=== PATIENT | female | born 1935 | race Caucasian/White ===

== ENCOUNTER 2016-12-20 09:19 | Inpatient (IN) | payer MEDICARE, BC ==
[2016-12-20] VITALS (7 sets, daily range): BP systolic 136–175; BP diastolic 63–72; PULSE 69–72; RESP 19–20; TEMP 98.3; Ht 167.6 cm; Wt 78.4 kg
[~2016-12-20] VITALS: Ht 167.6 cm; Wt 78.4 kg
[2016-12-20] MEDS ORDERED: CEFEPIME 2GM/50 ML (PMX) 50 ML IVPB STA (09:27)
[2016-12-20] MEDS ORDERED: ALBUTEROL 0.083% (NEB) 2.5 MG/3 ML AMP HHN STA (09:27)
[2016-12-20] MEDS ORDERED: VANCOMYCIN 1 GM (PMX) 250 ML IVPB ONE (09:30)
[2016-12-20] MEDS ORDERED: IPRATROPIUM (NEB) 0.5 MG/2.5 ML AMP HHN ONE (09:30)
[2016-12-20 10:04] LABS: AADO2 Arterial 260.2 mmHg (7.0-24.0); Allen Test ACCEPTAB; Arterial Base Excess 3.6 mmol/L (-3.0-3); Arterial COHb 0.3 % (0.0-3.0); Arterial Fraction of Oxyhgb 97.7 % (93.0-99.0); Arterial HCO3 29.1 mmol/L (22.0-26.0); Arterial MetHb 0.3 % (0.0-1.5); Arterial Total Hemglobin 13.6 g/dl (12.0-18.0); MODE COOL AEROSOL
[2016-12-20 10:10] LABS: BASOPHIL # 0.1 10^3/ul (0.0-0.1); BASOPHILS % 0.5 % (0.0-2.0); EOSINOPHILS # 1.1 10^3/ul (0.0-0.5); EOSINOPHILS % 8.6 % (0.0-7.0); HEMATOCRIT 36.8 % (37.0-47.0); HEMOGLOBIN 12.2 g/dl (12.0-16.0); LYMPHOCYTES # 1.1 10^3/ul (0.8-2.9); MEAN CORPUSCULAR HEMOGLOBIN 30.4 pg (29.0-33.0); MEAN CORPUSCULAR HGB CONC 33.2 g/dl (32.0-37.0); MEAN CORPUSCULAR VOLUME 91.8 fl (82.0-101.0); MEAN PLATELET VOLUME 10.7 fl (7.4-10.4); MONOCYTE # 0.9 10^3/ul (0.3-0.9); MONOCYTES % 6.9 % (0.0-11.0); NEUTROPHIL # 9.4 10^3/ul (1.6-7.5); NEUTROPHILS % 74.6 % (39.0-77.0); PLATELET COUNT 264 10^3/UL (140-415); RED BLOOD COUNT 4.01 10^6/ul (4.20-5.40); RED CELL DISTRIBUTION WIDTH 14.2 % (11.5-14.5); WHITE BLOOD COUNT 12.6 10^3/ul (4.8-10.8)
--- NOTE | 2016-12-20 10:21 | RADRPT ---
PROCEDURE: XR Chest. CLINICAL INDICATION: Sepsis TECHNIQUE: A single AP view of the chest was obtained. COMPARISON: No prior examination is available for comparison. FINDINGS: A tracheostomy tube is in place. There is a left subclavian dual chamber pacemaker. The lungs are hyperinflated with coarsening of the interstitial markings. There are left lower lobe interstitial opacities. No focal airspace opacification, pleural effusion or pneumothorax is seen. The cardiomediastinal silhouette is within normal limits for size. Calcifications are seen within t he aortic arch. The osseous structures are unremarkable. IMPRESSION: 1. Chronic-appearing interstitial changes. 2. Left lower lobe interstitial opacities may reflect atelectasis, superimposed interstitial edema or pneumonia. 3. Aortic atherosclerosis. 4. Tubes and lines, as described above. RPTAT: HH .Pura Cárdenas MD, MD Date Time Electronically viewed and signed by .Pura Cárdenas MD, on 12/20/2016 10:21 .G/
[2016-12-20 10:26] LABS: INR 0.93; PROTIME 12.5 Sec (12.2-14.2)
[2016-12-20 10:27] LABS: PARTIAL THROMBOPLASTIN TIME 30.3 Sec (25.0-35.0)
[2016-12-20 10:30] LABS: ALANINE AMINOTRANSFERASE 22 IU/L (13-69); ALBUMIN 3.9 g/dl (3.3-4.9); ALBUMIN/GLOBULIN RATIO 1.02; ALKALINE PHOSPHATASE 90 IU/L (42-121); ANION GAP 12 (8-16); ASPARTATE AMINO TRANSFERASE 19 IU/L (15-46); BILIRUBIN,INDIRECT 0.3 mg/dl (0-1.1); BILIRUBIN,TOTAL 0.3 mg/dl (0.2-1.3); BLOOD UREA NITROGEN 17 mg/dl (7-20); CALCIUM 9.2 mg/dl (8.4-10.2); CARBON DIOXIDE 34 mmol/L (21-31); CHLORIDE 96 mmol/L (97-110); CREATININE 0.56 mg/dl (0.44-1.00); GLUCOSE 117 mg/dl (70-220); POTASSIUM 4.5 mmol/L (3.5-5.1); SODIUM 137 mmol/L (135-144); TOTAL PROTEIN 7.7 g/dl (6.1-8.1)
[2016-12-20 10:41] LABS: TROPONIN-I < 0.012 ng/ml (0.00-0.12)
[2016-12-20] MEDS ORDERED: ACETAMINOPHEN 325 MG TAB PO PRN ×2 (11:00)
[2016-12-20] MEDS ORDERED: NACL 0.9% 3 ML SYG IV SCH (11:00)
[2016-12-20] MEDS ORDERED: morphine 2 MG INJ IV PRN (11:00)
[2016-12-20] MEDS ORDERED: DOCUSATE SODIUM 100 MG CAP PO PRN (11:00)
[2016-12-20] MEDS ORDERED: VANCOMYCIN IV PER PHARMACY XX SCH (11:00)
[2016-12-20] MEDS ORDERED: ONDANSETRON 4 MG INJ IV PRN ×2 (11:00)
[2016-12-20] MEDS ORDERED: ALBUTEROL/IPRATROPIUM (NEB) 3 ML AMP HHN PRN (11:30)
[2016-12-20] MEDS ORDERED: ACET-2047 PEG (12:43)
[2016-12-20] MEDS ORDERED: BISA10SU75 PR (12:45)
[2016-12-20] MEDS ORDERED: AMLO5TAB4 PEG (12:45)
[2016-12-20] MEDS ORDERED: CARB1TAB2 PEG (12:46)
[2016-12-20] MEDS ORDERED: CLON-379 PEG (12:46)
[2016-12-20] MEDS ORDERED: DOCU-159 PEG (12:47)
[2016-12-20] MEDS ORDERED: IPRA3AMP INHALATION (12:47)
[2016-12-20] MEDS ORDERED: LEVE500S8 PEG (12:48)
[2016-12-20] MEDS ORDERED: HYDR-3670 GTB (12:48)
[2016-12-20] MEDS ORDERED: LACT10SO5 PO (12:49)
[2016-12-20] MEDS ORDERED: KETO120S2 TOP (12:49)
[2016-12-20] MEDS ORDERED: LEVO25TA53 PO (12:50)
[2016-12-20] MEDS ORDERED: POLY17PO6 PO (12:50)
[2016-12-20] MEDS ORDERED: LACT20SO2 PO (12:50)
[2016-12-20] MEDS ORDERED: MODA100T10 PEG (12:51)
[2016-12-20] MEDS ORDERED: MULTI PO (12:55)
[2016-12-20] MEDS ORDERED: POLY15DR30 BOTH EYES (12:56)
[2016-12-20] MEDS ORDERED: PROT946L PEG (12:57)
[2016-12-20] MEDS ORDERED: SENN-53 PO (12:57)
--- NOTE | 2016-12-20 12:57 | ERD ---
ER Documentation Chief Complaint Chief Complaint patient FAITH from SNF with complaint of SOB and Low Saturation HPI Patient is an 81-year-old female with stroke and seizures as well as dementia who presents with low oxygen. Please note the history and physical exam is limited secondary to the patient's dementia at baseline. The patient was brought in by ambulance. She came from [facility]. She had a low oxygen level and congestion and wheezing. She needed to have an increased oxygen amount to raise her O2 sat. Her temperature was 99.1. I cannot obtain history otherwise. Upon review of old medical records this is the patient's first visit to the emergency department. Her primary doctor is Dr. Fowler. ROS All systems reviewed and are negative except as per history of present illness. Medications Home Meds Reported Medications Modafinil* (Provigil*) 100 Mg Tablet, 25 MG PEG DAILY, TAB 12/20/16 Polyethylene Glycol* (Miralax*) 17 Gm Powd.pack, 17 GM PO DAILY, #30 PACKET 12/20/16 Levothyroxine Sodium* (Levothyroxine Sodium*) 25 Mcg Tablet, 25 MCG PO BEFORE BREAKFAST, #30 TAB 12/20/16 Lactulose* (Lactulose*) 20 Gm/30 Ml Solution, 20 GM PO DAILY Y for CONSTIPATION , ML 12/20/16 Ketoconazole* (Ketoconazole*) 2% - 120 Ml Shampoo, 1 APPLIC TOP FRIDAY & FRIDAY, EA WASH HAIR/SCALP AND RINSE OFF 12/20/16 Levetiracetam* (Keppra*) 500 Mg/5 Ml Solution, 1000 MG PEG BID, BOTTLE 12/20/16 Hydralazine Hcl* (Hydralazine Hcl*) 10 Mg Tablet, 10 MG GTB Q8 Y for ELEVATED BLOOD PRESSURE, #120 TAB 12/20/16 Ipratropium-Albuterol (Ipratropium-Albuterol) 0.5-3 Mg/3 Ml Ampul.neb, 3 ML INHALATION Q2HWA Y for WHEEZING AND SOB, #30 VIAL 12/20/16 Docusate Sodium* (Docusate Sodium*) 100 Mg Capsule, 100 MG PEG Q12, #30 CAP 12/20/16 Clonidine Hcl* (Clonidine Hcl*) 0.1 Mg Tab, 0.1 MG PEG Q12 Y for ELEVATED BLOOD PRESSURE, TAB 12/20/16 Carbidopa/Levodopa (Sinemet 25-100 mg Tablet) 1 Each Tablet, 1 EACH PEG TID, TAB 12/20/16 Bisacodyl* (Bisacodyl*) 10 Mg Supp, 10 MG MN Q24H Y for CONSTIPATION, SUPP 12/20/16 Amlodipine Besylate* (Norvasc*) 5 Mg Tablet, 5 MG PEG Q12, TAB HOLD IF SBP<110 OR HR<60 12/20/16 Acetaminophen* (Acetaminophen*) 650 Mg Tablet, 650 MG PEG Q4 Y for PAIN AND OR ELEVATED TEMP, #30 TAB 12/20/16 Discontinued Reported Medications Lactulose* (Lactulose*) 10 Gm/15 Ml Solution, 10 GM PO DAILY, ML 12/20/16 Allergies Allergies: Coded Allergies: No Known Allergy (Unverified , 12/20/16) PMhx/Soc Positive for stroke, seizures, and dementia FmHx Unable to obtain Physical Exam Vitals Vital Signs Date Time Temp Pulse Resp B/P Pulse Ox O2 Delivery O2 Flow Rate FiO2 12/20/16 10:13 92 20 96 Aerosol 10.0 40 T Tube 12/20/16 10:13 96 10.0 40 12/20/16 10:00 Venti Mask 10.0 12/20/16 10:00 98.3 99 20 142/57 99 Mechanical Ventilator 10.0 12/20/16 09:38 Nasal Cannula 12/20/16 09:35 89 17 96 Aerosol 10.0 60 T Tube 12/20/16 09:35 94 10.0 60 12/20/16 09:20 98.0 100 20 145/86 98 Physical Exam Const: Chronically ill Head: Atraumatic Eyes: Normal Conjunctiva ENT: Normal External Ears, Nose and Mouth. Neck: Full range of motion..~ No meningismus. Resp: Decreased breath sounds bilaterally Cardio: Regular rate and rhythm, no murmurs Abd: Soft, non tender, non distended. Normal bowel sounds Skin: No petechiae or rashes Back: No midline or flank tenderness Ext: No cyanosis, or edema Neur: Awake encephalopathic Result Diagram: 12/20/1645 12/20/1645 Results 24 hrs Laboratory Tests Test 12/20/16 09:43 12/20/16 09:45 Blood Gas Specimen Source Blood arterial Arterial Blood Date Drawn 12/20/2016 9:58:51 AM Arterial Blood pH (Temp corrected) 7.407 Arterial Blood pCO2 (Temp correct) 47.3mmhg Arterial Blood pO2 (Temp corrected) 115.6mmHG Arterial Blood HCO3 29.1mmol/L Arterial Blood Base Excess 3.6mmol/L Arterial Blood Oxygen Saturation 98.3mmHG Dc Test ACCEPTAB Arterial Blood Gas Puncture Site Right Radial Arterial Blood Carboxyhemoglobin 0.3% Arterial Blood Methemoglobin 0.3% Blood Gas A-a O2 Differential 260.2mmHg Oxyhemoglobin Percent 97.7% Total Hemoglobin 13.6g/dl Blood Gas Temperature 37.0C Blood Gas Modality COOL AEROSOL FiO2 60.0% Blood Gas Notified Whom [place] Blood Gas Notified Time 12/20/2016 10:03:25 AM Bedside Glucose 119mg/dL White Blood Count 12.610^3/ul Red Blood Count 4.0110^6/ul Hemoglobin 12.2g/dl Hematocrit 36.8% Mean Corpuscular Volume 91.8fl Mean Corpuscular Hemoglobin 30.4pg Mean Corpuscular Hemoglobin Concent 33.2g/dl Red Cell Distribution Width 14.2% Platelet Count 61712^3/UL Mean Platelet Volume 10.7fl Neutrophils % 74.6% Lymphocytes % 9.0% Monocytes % 6.9% Eosinophils % 8.6% Basophils % 0.5% Nucleated Red Blood Cells % 0.0/100WBC Neutrophils # 9.410^3/ul Lymphocytes # 1.110^3/ul Monocytes # 0.910^3/ul Eosinophils # 1.110^3/ul Basophils # 0.110^3/ul Nucleated Red Blood Cells # 0.010^3/ul Prothrombin Time 12.5Sec Prothrombin Time Ratio 1.0 INR International Normalized Ratio 0.93 Activated Partial Thromboplast Time 30.3Sec Sodium Level 137mmol/L Potassium Level 4.5mmol/L Chloride Level 96mmol/L Carbon Dioxide Level 34mmol/L Anion Gap 12 Blood Urea Nitrogen 17mg/dl Creatinine 0.56mg/dl Glucose Level 117mg/dl Lactic Acid Level 1.3mmol/L Calcium Level 9.2mg/dl Total Bilirubin 0.3mg/dl Direct Bilirubin 0.00mg/dl Indirect Bilirubin 0.3mg/dl Aspartate Amino Transf (AST/SGOT) 19IU/L Alanine Aminotransferase (ALT/SGPT) 22IU/L Alkaline Phosphatase 90IU/L Troponin I < 0.012ng/ml Total Protein 7.7g/dl Albumin 3.9g/dl Globulin 3.80g/dl Albumin/Globulin Ratio 1.02 Current Medications Medications (Trade) Dose Ordered Sig/Elda Route PRN Reason Start Time Stop Time Status Last Admin Dose Admin Cefepime HCl 50 ml @ 100 mls/hr ONCE STAT IVPB 12/20/16 09:27 12/20/16 09:56 DC 12/20/16 09:58 Vancomycin HCl (Vancocin) 250 ml @ 125 mls/hr ONCE ONCE IVPB 12/20/16 09:30 12/20/16 11:29 DC Albuterol (Proventil 0.083% (Neb)) 5 mg ONCE STAT HHN 12/20/16 09:27 12/20/16 09:29 DC 12/20/16 10:13 Ipratropium Benjamin (Atrovent 0.02% (Neb)) 0.5 mg ONCE ONCE HHN 12/20/16 09:30 12/20/16 09:31 DC 12/20/16 10:13 Procedures/MDM EKG read by me: Rate/Rhythm: Regular rate and rhythm at a normal rate Intervals: Normal Impression: No evidence of ischemia or arrhythmia Chest x-ray shows left lower lobe pneumonia per radiology. Patient is an 81-year-old female presents with low oxygen. She was found to have pneumonia. She was given broad-spectrum antibiotics and fluids. At this point I doubt sepsis as she does not have 2 SIRS criteria. The patient will be admitted to the care of Dr. Fowler her primary doctor to a medical surgical bed. She will need continued antibiotics. She was given albuterol and Atrovent in the emergency department. I doubt pneumothorax or pulmonary embolism. Departure Diagnosis: Primary Impression: Hypoxia Additional Impression: Pneumonia Pneumonia type: due to unspecified organism Laterality: left Lung location : lower lobe of lung Qualified Code: J18.1 - Pneumonia of left lower lobe due to infectious organism Condition: VIGNESH Lopez MD Dec 20, 2016 12:57
[2016-12-20] MEDS ORDERED: KEN1O TOP (12:58)
[2016-12-20] MEDS ORDERED: VANCOMYCIN 750 MG in DEXTROSE 5% 150 ML IVPB SCH (13:30)
[2016-12-20] MEDS ORDERED: ARTIFICIAL TEARS 15 ML OPH BOTH EYES PRN (13:30)
[2016-12-20] MEDS ORDERED: BISACODYL 10 MG SUPP PR PRN (13:30)
[2016-12-20] MEDS ORDERED: LACTULOSE 30ML CUP PO PRN (13:30)
[2016-12-20] MEDS ORDERED: KETOCONAZOLE 2% SHAMPOO 120 ML BTL TOP SCH (14:30)
[2016-12-20] MEDS: ALBUTEROL/IPRATROPIUM (NEB) 3 ML AMP HHN SCH ×3 (14:36→20:27)
[2016-12-20] MEDS: AMLODIPINE 5 MG TAB PEG SCH ×2 (15:10→22:38)
[2016-12-20] MEDS: ACYCLOVIR 800 MG TAB PO SCH ×3 (15:11→22:35)
--- NOTE | 2016-12-20 16:39 | HP ---
DATE OF ADMISSION: 12/20/2016 REASON FOR ADMISSION: Pneumonia, hypoxia, acute on chronic respiratory failure. HISTORY OF PRESENT ILLNESS: The patient is an unfortunate 81-year-old female with history of coronary artery disease, status post PCI, pacemaker, COPD, trach and PEG, off the ventilator, hi story of a CVA and intracranial hemorrhage status post shunt placement. She had initially a basilic vein thrombosis. The patient unfortunately has chronic encephalopathy and she does not really resp ond to verbal stimuli. The patient was in her usual state of health up until today when I received a call that the patient is hypoxic and has increased secretions. Upon discussion with nursing staff , we decided to send the patient to the hospital for further evaluation. In the ER, the patient was evaluated extensively. Chest x-ray was done which showed chronic appearing interstitial changes wi th left lower lobe interstitial opacity, may reflect atelectasis, superimposed interstitial edema or pneumonia. There is aortic atherosclerosis, and tubes and lines are as described. The patient was started on cefepime and vancomycin, breathing treatments were given as well, and the patient was pa ncultured and transferred to the telemetry unit. Upon evaluation, the patient does keep her eyes op en, in no distress, has a trach collar, breathing adequately now on 10 liters, 80% FIO2, 99%. The p glendy's is at bedside, he is aware of plan of care and patient's condition. The patient ca nnot provide history. PAST MEDICAL HISTORY: Includes history of cerebrovascular accident, intracranial hemorrhage, [place] artery disease, COPD, pacemaker placement, dysphagia, G-tube feeding, history of UTI. SOCIAL HISTORY: Positive tobacco in the past. Alcohol and IV drug abuse unknown. ALLERGIES: NO KNOWN DRUG ALLERGIES. FAMILY HISTORY: Noncontributory. PAST SURGICAL HISTORY: Trach placement, PEG placement and pacemaker placement. MEDICATIONS: The patient's correction medications include the followin. Ipratropium. 2. 3. Amlodipine 5 mg q.12. 4. Clonidine 0.1 q.12 p.r.n. 5. Hydralazine 10 mg q.8 p.r.n. 6. Tylenol p.r.n. 7. Sinemet 25/100 t.i.d. 8. Keppra 1000 b.i.d. 9. Provigil 25 mg daily. 10. Lactulose p.r.n. daily. 11. Protein supplement as directed. 12. Propylene alcohol as directed. 13. Bisacodyl as directed. 14. Colace 100 mg every 12 hours. 15. MiraLax 17 grams daily. 16. Senna 1 tab daily. 17. Synthroid 25 mcg daily. 18. Ketoconazole shampoo as directed. 19. Kenalog ointment as directed. 20. Multivitamin as directed. PHYSICAL EXAMINATION: VITAL SIGNS: Temperature 98.5, pulse 102, respirations 19, blood pressure 165/71, saturation 99% on trach aerosol. GENERAL: The patient is in no acute distress. The patient with temporal wasting, sunken eyes, pale . She has a trach collar off the ventilator. CARDIOVASCULAR: S1, S2, regular rate. LUNGS: Clear. Pacemaker in the left upper chest. ABDOMEN: Soft. G-tube in place. The right side of the abdomen has a vesicular rash suggestive of shingles. LABORATORY DATA: White count 12.6, hemoglobin 12.2, hematocrit 37, platelet count 264, neutrophils 75%, lymphocytes 9%, monocytes 7%, eosinophils 9%. Chemistry: Sodium is 137, potassium 4.5, chlori de 96, bicarbonate 34, BUN is 17, creatinine 0.53, glucose of 117. LFTs are normal. Albumin 3.9. Troponin less than 0.019. Lactic acid 1.3. INR 0.93. ABG shows a pH of 7.4, pCO2 of 47, pO2 115, bicarbonate 29, saturation is 98% on 60% FIO2. Chest x-ray as above. EKG: Normal sinus rhythm, right bundle branch block at 95 beats per minute. ASSESSMENT AND PLAN: This is an unfortunate 81-year-old female with history of brain inju ry/hemorrhagic cerebrovascular accident, dysphagia, gastrostomy tube feedings, chronic respiratory f ailure, who presents with increased oral secretions and left-sided pneumonia. 1. Respiratory: The patient with pneumonia. The patient will be started on cefepime and vancomyci n, breathing treatments around the clock will be provided. Will obtain respiratory culture from the trach. Case discussed with RT. Consult pulmonology for further recommendations. Titrate the O2 t o keep saturation greater than 90%. 2. Cardiovascular: Stable. SCDs for DVT prophylaxis. She is off blood thinners because of histor y of hemorrhagic CVA, and probably can start it as this CVA was more than 6 months ago. Troponin is negative. No evidence of fluid overload state. 3. Gastrointestinal. The patient will be placed on gastrointestinal prophylaxis with Protonix. 4. Shingles. The patient will be started on acyclovir and will put her on Neurontin as well. 5. Eyelid discharge. Eyelid care is recommended. 6. Dysphagia. Continue G-tube feeding. 7. Hypothyroidism, on low-dose Synthroid. Follow up TSH level. 8. Constipation. Continue stool softeners. 9. Hypertension. Continue/resume the patient's medications, keep her normotensive. Case discussed with the at bedside. 10. Air mattress bed was ordered to prevent any wounds. The patient unfortunately is bedridden, un able to move on her own. 11. 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 12. On seizure prophylaxis with Keppra. May consider lowering the dose. 13. We will follow. Dictated By: JONE EPSTEIN/FLOYD Conf#: [id number] DID#: [id number]
--- NOTE | 2016-12-20 18:18 | CONS ---
DATE OF ADMISSION: 12/20/2016 DATE OF CONSULTATION: REASON FOR CONSULTATION: Shortness of breath. Thank you, Dr. Fowler, for this consultation. HISTORY OF PRESENT ILLNESS: This is an 81-year-old patient with a history of chronic respiratory fa ilure, tracheostomy, transferred from halfway facility for increasing shortness of breath, o rthopnea, PND, low oxygen saturation. The patient is unable to give me further details. On admissi on, found to have left-sided infiltrate with mild leukocytosis. PAST MEDICAL HISTORY: 1. Vent-dependent respiratory failure. 2. Dementia. 3. Dysphagia. 4. Hypertension. 5. Hyperlipidemia. MEDICATIONS: Per chart. ALLERGIES: NONE. SOCIAL HISTORY: Nonsmoker, no alcohol, no history of drug use. FAMILY HISTORY: Noncontributory. SYSTEMS REVIEW: A 12-point review of systems unable to perform. PHYSICAL EXAMINATION: GENERAL: Elderly-appearing lady, appears comfortable at rest, no acute distress. VITAL SIGNS: Currently afebrile. Pulse is 67, blood pressure 165/70, O2 saturation 96% on cool aer osol. NECK: Trach site clean and intact. CARDIAC: S1, S2, no added sounds or murmurs. CHEST: Diminished air entry bilaterally. ABDOMEN: Soft, nontender. No guarding or rebound. EXTREMITIES: No cyanosis, clubbing, edema. NEUROLOGIC: Generalized weakness. LABORATORY DATA: ABG: pH 7.4, pCO2 of 47, pO2 115. White count 12.6, hemoglobin 12.2, platelets o f 264. BUN 17, creatinine 0.56. INR 0.93. DIAGNOSTIC DATA: Chest x-ray: Chronic interstitial changes, possible left-sided infiltrate and/or effusion. IMPRESSION AND PLAN: 1. Acute on chronic hypoxemic respiratory failure. 2. Likely healthcare-associated pneumonia. 3. Chronic respiratory failure with tracheostomy. 4. History of dementia. 5. History of dysphagia. PLAN: 1. Continue cool aerosol. 2. Trach care. 3. Bronchodilators. 4. Antibiotics pending cultures. 5. DVT and GI prophylaxis. Dictated By: ABIOLA SANTANA MD SV/NTS Conf#: [id number] DID#: [id number] CC: JONE FOWLER MD;*EndCC*
[2016-12-20] MEDS ORDERED: DOCUSATE SODIUM 100 MG CAP PO SCH (21:00)
[2016-12-20] MEDS: GABAPENTIN 100 MG CAP GTB SCH (22:35)
[2016-12-20] MEDS: LEVETIRACETAM (100 MG/ML) 5ML CUP PEG SCH (22:36)
[2016-12-20] MEDS: CARBIDOPA/LEVODOPA (25/100) TAB PEG SCH (22:36)
[2016-12-20] MEDS: TRIAMCINOLONE ACET 0.1% 15 GM OINT TOP SCH (22:36)
[2016-12-21] VITALS (13 sets, daily range): BP systolic 116–139; BP diastolic 54–77; PULSE 70–78; RESP 19–20
[2016-12-21] MEDS: ALBUTEROL/IPRATROPIUM (NEB) 3 ML AMP HHN SCH ×6 (01:19→20:49)
[2016-12-21] MEDS: PANTOPRAZOLE (EC) 40 MG TAB PO SCH (05:51)
[2016-12-21 06:19] LABS: BASOPHIL # 0.1 10^3/ul (0.0-0.1); BASOPHILS % 0.6 % (0.0-2.0); EOSINOPHILS # 1.1 10^3/ul (0.0-0.5); EOSINOPHILS % 10.7 % (0.0-7.0); HEMATOCRIT 36.4 % (37.0-47.0); HEMOGLOBIN 11.8 g/dl (12.0-16.0); LYMPHOCYTES # 1.4 10^3/ul (0.8-2.9); LYMPHOCYTES % 13.9 % (15.0-51.0); MEAN CORPUSCULAR HEMOGLOBIN 30.1 pg (29.0-33.0); MEAN CORPUSCULAR HGB CONC 32.4 g/dl (32.0-37.0); MEAN CORPUSCULAR VOLUME 92.9 fl (82.0-101.0); MEAN PLATELET VOLUME 10.9 fl (7.4-10.4); MONOCYTE # 0.7 10^3/ul (0.3-0.9); MONOCYTES % 7.5 % (0.0-11.0); NEUTROPHIL # 6.6 10^3/ul (1.6-7.5); PLATELET COUNT 258 10^3/UL (140-415); RED BLOOD COUNT 3.92 10^6/ul (4.20-5.40); RED CELL DISTRIBUTION WIDTH 14.3 % (11.5-14.5); WHITE BLOOD COUNT 9.9 10^3/ul (4.8-10.8)
[2016-12-21 06:43] LABS: ALBUMIN 3.7 g/dl (3.3-4.9); ALBUMIN/GLOBULIN RATIO 1.02; BILIRUBIN,INDIRECT 0.3 mg/dl (0-1.1); BILIRUBIN,TOTAL 0.3 mg/dl (0.2-1.3); CALCIUM 9.1 mg/dl (8.4-10.2); CREATININE 0.55 mg/dl (0.44-1.00); POTASSIUM 4.6 mmol/L (3.5-5.1); TOTAL PROTEIN 7.3 g/dl (6.1-8.1)
[2016-12-21] MEDS: LEVOTHYROXINE 25 MCG TAB PO SCH (06:43)
[2016-12-21 07:36] LABS: THYROID STIMULATING HORMONE 2.15 MIU/L (0.465-4.680)
[2016-12-21] MEDS ORDERED: MODAFINIL 100 MG TAB PO SCH (09:00)
[2016-12-21] MEDS: CEFEPIME 1GM/50 ML (PMX) 50 ML IVPB SCH (09:15)
[2016-12-21] MEDS: GABAPENTIN 100 MG CAP GTB SCH ×3 (09:37→21:25)
[2016-12-21] MEDS: LEVETIRACETAM (100 MG/ML) 5ML CUP PEG SCH ×2 (09:38→21:24)
[2016-12-21] MEDS: SENNA TAB PO SCH (09:38)
[2016-12-21] MEDS: POLYETHYLENE GLYCOL 17 GM PACKET PO SCH (09:38)
[2016-12-21] MEDS: CARBIDOPA/LEVODOPA (25/100) TAB PEG SCH ×3 (09:38→21:25)
[2016-12-21] MEDS: MULTIVITAMINS THERAPEUTIC TAB PO SCH (09:39)
[2016-12-21] MEDS: ACYCLOVIR 800 MG TAB PO SCH ×5 (09:39→21:25)
[2016-12-21] MEDS: DOCUSATE SODIUM 10 MG/ML (10ML CUP) PO SCH ×2 (10:00→21:24)
[2016-12-21] MEDS: AMLODIPINE 5 MG TAB PEG SCH ×2 (10:03→21:27)
[2016-12-21] MEDS ORDERED: DOCUSATE SODIUM 10 MG/ML (10ML CUP) PO PRN (10:30)
--- NOTE | 2016-12-21 13:11 | CONS ---
Date/Time of Note Date/Time of Note DATE: 12/21/16 TIME: 13:00 Consult Date/Type/Reason Admit Date/Time Dec 20, 2016 at 10:49 Initial Consult Date Type of Consultation: Pulmonary Subjective Patient stable this morning. No new events. Objective Vital Signs Date Time Temp Pulse Resp B/P Pulse Ox O2 Delivery O2 Flow Rate FiO2 12/21/16 12:25 77 12/21/16 11:35 97.5 19 116/56 100 12/21/16 09:46 Aerosol 10.0 68 Intake and Output 12/20/16 12/20/16 12/21/16 15:00 23:00 07:00 Intake Total 115 ml 1095 ml Balance 115 ml 1095 ml Exam PHYSICAL EXAMINATION: GENERAL: Elderly-appearing lady, appears comfortable at rest, no acute distress. VITAL SIGNS: As above. NECK: Trach site clean and intact. CARDIAC: S1, S2, no added sounds or murmurs. CHEST: Diminished air entry bilaterally. ABDOMEN: Soft, nontender. No guarding or rebound. EXTREMITIES: No cyanosis, clubbing, edema. NEUROLOGIC: Generalized weakness. Results/Medications Result Diagram: 12/21/16 0552 12/21/16 0552 Results 24 hrs Laboratory Tests Test 12/20/16 14:30 12/21/16 05:52 Lactic Acid Level 1.6 White Blood Count 9.9 # Red Blood Count 3.92 L Hemoglobin 11.8 L Hematocrit 36.4 L Mean Corpuscular Volume 92.9 Mean Corpuscular Hemoglobin 30.1 Mean Corpuscular Hemoglobin Concent 32.4 Red Cell Distribution Width 14.3 Platelet Count 258 Mean Platelet Volume 10.9 H Neutrophils % 67.0 Lymphocytes % 13.9 L Monocytes % 7.5 Eosinophils % 10.7 H Basophils % 0.6 Nucleated Red Blood Cells % 0.0 Neutrophils # 6.6 Lymphocytes # 1.4 Monocytes # 0.7 Eosinophils # 1.1 H Basophils # 0.1 Nucleated Red Blood Cells # 0.0 Sodium Level 138 Potassium Level 4.6 Chloride Level 97 Carbon Dioxide Level 31 Anion Gap 15 Blood Urea Nitrogen 15 Creatinine 0.55 Glucose Level 130 Calcium Level 9.1 Total Bilirubin 0.3 Direct Bilirubin 0.00 Indirect Bilirubin 0.3 Aspartate Amino Transf (AST/SGOT) 19 Alanine Aminotransferase (ALT/SGPT) 23 Alkaline Phosphatase 85 Total Protein 7.3 Albumin 3.7 Globulin 3.60 H Albumin/Globulin Ratio 1.02 Thyroid Stimulating Hormone (TSH) 2.150 Medications Current Medications Ondansetron HCl (Zofran Inj) 4 mg Q6H PRN IV NAUSEA AND/OR VOMITING; Start 11/26 at 11:00 Acetaminophen (Tylenol Tab) 650 mg Q6H PRN PO PAIN LEVEL 1-3 OR FEVER; Start 12/20/16 at 11:00 Morphine Sulfate (morphine) 2 mg Q4H PRN IV PAIN LEVEL 7-10; Start 12/20/16 at 11:00 Pantoprazole 40 mg 40 mg DAILY@06 PO Last administered on 12/21/16 05:51; Admin Dose 40 MG; Start 12/21/16 at 06:00 Cefepime HCl (Maxipime 1gm/50 ml (Pmx)) 50 ml @ 100 mls/hr Q24H IVPB Last administered on 12/21/16 09:15; Admin Dose 100 MLS/HR; Start 12/21/16 at 09: 00 Amlodipine Besylate (Norvasc) 5 mg Q12 PEG Last administered on 12/21/16 10: 03; Admin Dose 5 MG; Start 12/20/16 at 13:30 Bisacodyl (Dulcolax Supp) 10 mg Q24H PRN RI CONSTIPATION; Start 12/20/16 at 13 :30 Carbidopa/Levodopa (Sinemet (25/ 100)) 1 tab TID PEG Last administered on 12/21 12:47; Admin Dose 1 TAB; Start 12/20/16 at 21:00 Hydralazine HCl (Apresoline) 10 mg Q8H PRN GTB SBP > 160; Start 12/20/16 at 13 :30 Ketoconazole (Nizoral Shampoo) 1 applic WeFr@09 TOP Last administered on 15:11; Admin Dose 1 APPLIC; Start 12/20/16 at 14:30 Lactulose (Enulose) 20 gm DAILY PRN PO CONSTIPATION; Start 12/20/16 at 13:30 Levetiracetam (Keppra Liquid) 1,000 mg BID PEG Last administered on 12/21/16 09:38; Admin Dose 1,000 MG; Start 12/20/16 at 21:00 Multivitamins Therapeutic (Theragran) 1 tab DAILY PO Last administered on 12/21 09:39; Admin Dose 1 TAB; Start 12/21/16 at 09:00 Polyethylene Glycol (Miralax) 17 gm DAILY PO Last administered on 12/21/16 09 :38; Admin Dose 17 GM; Start 12/21/16 at 09:00 Eye Lubricant (Artificial Tears Oph) 1 drop Q2HWA PRN BOTH EYES DRY EYES; Start 12/20/16 at 13:30 Senna (Senokot) 1 tab DAILY PO Last administered on 12/21/16 09:38; Admin Dose 1 TAB; Start 12/21/16 at 09:00 Triamcinolone Acetonide (Kenalog 0.1% Oint) 1 applic QPM TOP Last administered on 12/20/16 22:36; Admin Dose 1 APPLIC; Start 12/20/16 at 21:00 Gabapentin 100 mg 100 mg TID GTB Last administered on 12/21/16 12:46; Admin Dose 100 MG; Start 12/20/16 at 21:00 Vancomycin HCl/ Sodium Chloride (Vancocin/NS) 250 ml @ 83.333 mls/ hr Q24H IVPB ; Start 12/21/16 at 13:00 Docusate Sodium (Colace Liquid Cup) 100 mg Q12 PO Last administered on 10:00; Admin Dose 100 MG; Start 12/21/16 at 10:00 Docusate Sodium (Colace Liquid Cup) 100 mg Q12H PRN PO CONSTIPATION Last administered on 12/21/16 12:51; Admin Dose 100 MG; Start 12/21/16 at 10:30 Assessment/Plan Chief Complaint/Hosp Course IMPRESSION: 1. Acute on chronic hypoxemic respiratory failure. 2. Likely healthcare-associated pneumonia. 3. Chronic respiratory failure with tracheostomy. 4. History of dementia. 5. History of dysphagia. PLAN: 1. Continue cool aerosol. 2. Trach care. 3. Bronchodilators. 4. Antibiotics pending cultures. 5. DVT and GI prophylaxis. consider dc to SNF Problems: ABIOLA SANTANA MD, [facility] Dec 21, 2016 13:11
[2016-12-21] MEDS: VANCOMYCIN 1.25 GM in SOD CHLORIDE 0.9% 250 ML IVPB SCH (13:58)
[2016-12-21] MEDS: TRIAMCINOLONE ACET 0.1% 15 GM OINT TOP SCH (21:27)
--- NOTE | 2016-12-21 21:31 | PN ---
DATE: 12/21/2016 SUBJECTIVE: The patient is seen, appears comfortable, endotracheal was now only 40% FIO2. I apprec iate pulmonary consultation and recommendations. PHYSICAL EXAMINATION: VITAL SIGNS: Temperature 97.6, pulse 68, respirations 20, blood pressure 129/62, saturation 96% on 40%. The patient is afebrile. GENERAL: The patient is in no acute distress. She has significant dandruff on the head. She has b een provided with shampoo. The patient has slightly yellow discharge, not involving the inner eye. CARDIOVASCULAR: Positive S1, S2. LUNGS: Actually clear bilaterally. The patient has a trach also. ABDOMEN: Soft. G-tube in place. She has shingles in the right abdomen. EXTREMITIES: There is no clubbing, cyanosis, or edema. LABORATORY DATA: White count is now normal at 9.9, hemoglobin 11.8, hematocrit 36, platelet count o f 258, neutrophils 67%, lymphocytes 14%. Chemistry: Sodium 138, potassium 4.6, chloride 97, bicarb 15, creatinine 0.55, glucose of 130. LFTs are all normal. The patient's blood cultures show gram- positive cocci in clusters, 2 out of 2 bottles, suggestive of bacteremia and respiratory shows mixed gram-negative organisms. MEDICATIONS: Include: 1. Vancomycin IV dose per pharmacy. 2. Colace 100 q.12. 3. Cefepime 1 gram q.24 hours. 4. Multivitamin 1 tab daily. 5. MiraLax 17 g daily. 6. Senna 1 tab daily. 7. Synthroid 25 mL daily. 8. Protonix 40 mg daily. 9. Sinemet 25/100 t.i.d. 10. Keppra 1000 b.i.d. 11. Kenalog ointment q.p.m. 12. Neurontin 100 t.i.d. for shingles. 13. Zovirax 800 5 times a day. 14. Ketoconazole every Friday and Friday. 15. Norvasc 5 mg q. 12. 16. Hydralazine p.r.n. 17. Lactulose p.r.n. 18. Artificial tears as directed. 19. DuoNeb q.4. 20. DuoNeb q.2 p.r.n. 21. Zofran p.r.n. 22. Tylenol p.r.n. 23. Morphine p.r.n. 24. Vancomycin IV dose per pharmacy. ASSESSMENT AND PLAN: This is an 81-year-old female with history of brain injury, hemorrha gic cerebrovascular accident, dysphagia, G-tube feeding, chronic respiratory failure, on trach and a lso presented with increased secretions and was found to have a left-sided pneumonia. 1. Respiratory. The patient with pneumonia. Continue cefepime and vancomycin. Follow up sputum c ulture results. Continue breathing treatment, O2 support. I appreciate pulmonary consult. O2 requ irement has decreased. 2. Cardiovascular. On sequential compression devices for deep venous thrombosis prophylaxis, now o ff blood thinner secondary to hemorrhagic cerebrovascular accident. Troponin has been negative. Cu rrently, no evidence of fluid overload state. 3. Gastrointestinal. Continue gastrointestinal prophylaxis with Protonix. 4. Shingles. Continue acyclovir and Neurontin. 5. Eyelid discharge. Eyelid care is recommended. 6. Dysphagia, tolerating G-tube feeding. 7. Hypothyroidism. Continue Synthroid. TSH is 2.15. 8. Constipation. Continue stool softener. 9. Hypertension. Vitals are all stable. 10. Parkinsonism, on Sinemet. 11. Seizure disorder, on Keppra. 12. The patient is currently on air mattress bed, frequent turning as needed. 13. I spoke with the . I told him that I am coming. He said he is busy with a client. Ankit klein inform him of the patient's ongoing progress. 14. Plan for repeat chest x-ray in 1 to 2 days. 15. Infectious disease. The patient with positive blood cultures. We will see if this is real. Zackery bacon will repeat blood cultures in the a.m. Continue above antibiotics. His white count is normal. Zackery bacon will follow. Dictated By: JONE EPSTEIN/FLOYD Conf#: [id number] DID#: [id number]
[2016-12-22] VITALS (12 sets, daily range): BP systolic 129–180; BP diastolic 63–78; PULSE 75–86; RESP 16–68
[2016-12-22] MEDS: ALBUTEROL/IPRATROPIUM (NEB) 3 ML AMP HHN SCH ×6 (01:11→20:52)
[2016-12-22] MEDS: LEVOTHYROXINE 25 MCG TAB PO SCH (06:06)
[2016-12-22] MEDS: PANTOPRAZOLE (EC) 40 MG TAB PO SCH (06:06)
[2016-12-22 07:11] LABS: BASOPHIL # 0.1 10^3/ul (0.0-0.1); BASOPHILS % 0.5 % (0.0-2.0); EOSINOPHILS # 1.1 10^3/ul (0.0-0.5); EOSINOPHILS % 11.5 % (0.0-7.0); HEMATOCRIT 34.1 % (37.0-47.0); HEMOGLOBIN 11.3 g/dl (12.0-16.0); LYMPHOCYTES % 10.7 % (15.0-51.0); MEAN CORPUSCULAR HEMOGLOBIN 30.7 pg (29.0-33.0); MEAN CORPUSCULAR HGB CONC 33.1 g/dl (32.0-37.0); MEAN CORPUSCULAR VOLUME 92.7 fl (82.0-101.0); MEAN PLATELET VOLUME 11.1 fl (7.4-10.4); MONOCYTE # 0.6 10^3/ul (0.3-0.9); MONOCYTES % 6.6 % (0.0-11.0); NEUTROPHIL # 6.7 10^3/ul (1.6-7.5); NEUTROPHILS % 70.4 % (39.0-77.0); PLATELET COUNT 233 10^3/UL (140-415); RED BLOOD COUNT 3.68 10^6/ul (4.20-5.40); RED CELL DISTRIBUTION WIDTH 14.3 % (11.5-14.5); WHITE BLOOD COUNT 9.5 10^3/ul (4.8-10.8)
[2016-12-22 07:53] LABS: CALCIUM 9.2 mg/dl (8.4-10.2); CREATININE 0.57 mg/dl (0.44-1.00); POTASSIUM 4.6 mmol/L (3.5-5.1)
[2016-12-22 07:57] LABS: MAGNESIUM 1.9 mg/dl (1.7-2.5); PHOSPHORUS 3.6 mg/dl (2.5-4.9)
[2016-12-22] MEDS: LEVETIRACETAM (100 MG/ML) 5ML CUP PEG SCH ×2 (09:41→21:21)
[2016-12-22] MEDS: DOCUSATE SODIUM 10 MG/ML (10ML CUP) PO SCH ×2 (09:42→21:21)
[2016-12-22] MEDS: SENNA TAB PO SCH (09:42)
[2016-12-22] MEDS: POLYETHYLENE GLYCOL 17 GM PACKET PO SCH (09:42)
[2016-12-22] MEDS: MULTIVITAMINS THERAPEUTIC TAB PO SCH (09:42)
[2016-12-22] MEDS: GABAPENTIN 100 MG CAP GTB SCH ×3 (09:42→21:22)
[2016-12-22] MEDS: CARBIDOPA/LEVODOPA (25/100) TAB PEG SCH ×3 (09:42→21:21)
[2016-12-22] MEDS: CEFEPIME 1GM/50 ML (PMX) 50 ML IVPB SCH (09:42)
[2016-12-22] MEDS: ACYCLOVIR 800 MG TAB PO SCH ×5 (09:44→21:21)
[2016-12-22] MEDS: AMLODIPINE 5 MG TAB PEG SCH ×2 (12:45→21:24)
[2016-12-22] MEDS: VANCOMYCIN 1.25 GM in SOD CHLORIDE 0.9% 250 ML IVPB SCH (12:57)
--- NOTE | 2016-12-22 13:01 | CONS ---
Date/Time of Note Date/Time of Note DATE: 12/22/16 TIME: 12:58 Consult Date/Type/Reason Admit Date/Time Dec 20, 2016 at 10:49 Type of Consultation: Pulmonary Subjective Remains stable this morning. No events overnight. No leukocytosis and afebrile. Objective Vital Signs Date Time Temp Pulse Resp B/P Pulse Ox O2 Delivery O2 Flow Rate FiO2 12/22/16 12:43 98.0 73 18 145/78 100 12/22/16 09:05 Aerosol 10.0 60 T Tube Intake and Output 12/21/16 12/21/16 12/22/16 15:00 23:00 07:00 Intake Total 950 ml Balance 950 ml Exam PHYSICAL EXAMINATION: GENERAL: Elderly-appearing lady, appears comfortable at rest, no acute distress. VITAL SIGNS: As above. NECK: Trach site clean and intact. CARDIAC: S1, S2, no added sounds or murmurs. CHEST: Diminished air entry bilaterally. ABDOMEN: Soft, nontender. No guarding or rebound. EXTREMITIES: No cyanosis, clubbing, edema. NEUROLOGIC: Generalized weakness. Results/Medications Result Diagram: 12/22/16 0641 12/22/16 0641 Results 24 hrs Laboratory Tests Test 12/22/16 06:41 White Blood Count 9.5 Red Blood Count 3.68 L Hemoglobin 11.3 L Hematocrit 34.1 L Mean Corpuscular Volume 92.7 Mean Corpuscular Hemoglobin 30.7 Mean Corpuscular Hemoglobin Concent 33.1 Red Cell Distribution Width 14.3 Platelet Count 233 Mean Platelet Volume 11.1 H Neutrophils % 70.4 Lymphocytes % 10.7 L Monocytes % 6.6 Eosinophils % 11.5 H Basophils % 0.5 Nucleated Red Blood Cells % 0.0 Neutrophils # 6.7 Lymphocytes # 1.0 Monocytes # 0.6 Eosinophils # 1.1 H Basophils # 0.1 Nucleated Red Blood Cells # 0.0 Sodium Level 136 Potassium Level 4.6 Chloride Level 97 Carbon Dioxide Level 35 H Anion Gap 9 # Blood Urea Nitrogen 15 Creatinine 0.57 Glucose Level 126 Calcium Level 9.2 Phosphorus Level 3.6 Magnesium Level 1.9 Medications Current Medications Ondansetron HCl (Zofran Inj) 4 mg Q6H PRN IV NAUSEA AND/OR VOMITING; Start 11/26 at 11:00 Acetaminophen (Tylenol Tab) 650 mg Q6H PRN PO PAIN LEVEL 1-3 OR FEVER; Start 12/20/16 at 11:00 Morphine Sulfate (morphine) 2 mg Q4H PRN IV PAIN LEVEL 7-10; Start 12/20/16 at 11:00 Pantoprazole 40 mg 40 mg DAILY@06 PO Last administered on 12/22/16 06:06; Admin Dose 40 MG; Start 12/21/16 at 06:00 Cefepime HCl (Maxipime 1gm/50 ml (Pmx)) 50 ml @ 100 mls/hr Q24H IVPB Last administered on 12/22/16 09:42; Admin Dose 100 MLS/HR; Start 12/21/16 at 09: 00 Amlodipine Besylate (Norvasc) 5 mg Q12 PEG Last administered on 12/22/16 12: 45; Admin Dose 5 MG; Start 12/20/16 at 13:30 Bisacodyl (Dulcolax Supp) 10 mg Q24H PRN [place] CONSTIPATION; Start 12/20/16 at 13 :30 Carbidopa/Levodopa (Sinemet (25/ 100)) 1 tab TID PEG Last administered on 12/22 12:44; Admin Dose 1 TAB; Start 12/20/16 at 21:00 Hydralazine HCl (Apresoline) 10 mg Q8H PRN GTB SBP > 160; Start 12/20/16 at 13 :30 Ketoconazole (Nizoral Shampoo) 1 applic WeFr@09 TOP Last administered on 15:11; Admin Dose 1 APPLIC; Start 12/20/16 at 14:30 Lactulose (Enulose) 20 gm DAILY PRN PO CONSTIPATION; Start 12/20/16 at 13:30 Levetiracetam (Keppra Liquid) 1,000 mg BID PEG Last administered on 12/22/16 09:41; Admin Dose 1,000 MG; Start 12/20/16 at 21:00 Multivitamins Therapeutic (Theragran) 1 tab DAILY PO Last administered on 12/22 09:42; Admin Dose 1 TAB; Start 12/21/16 at 09:00 Polyethylene Glycol (Miralax) 17 gm DAILY PO Last administered on 12/22/16 09 :42; Admin Dose 17 GM; Start 12/21/16 at 09:00 Eye Lubricant (Artificial Tears Oph) 1 drop Q2HWA PRN BOTH EYES DRY EYES; Start 12/20/16 at 13:30 Senna (Senokot) 1 tab DAILY PO Last administered on 12/22/16 09:42; Admin Dose 1 TAB; Start 12/21/16 at 09:00 Triamcinolone Acetonide (Kenalog 0.1% Oint) 1 applic QPM TOP Last administered on 12/21/16 21:27; Admin Dose 1 APPLIC; Start 12/20/16 at 21:00 Gabapentin 100 mg 100 mg TID GTB Last administered on 12/22/16 12:44; Admin Dose 100 MG; Start 12/20/16 at 21:00 Vancomycin HCl/ Sodium Chloride (Vancocin/NS) 250 ml @ 83.333 mls/ hr Q24H IVPB Last administered on 12/22/16 12:57; Admin Dose 83.333 MLS/HR; Start at 13:00 Docusate Sodium (Colace Liquid Cup) 100 mg Q12 PO Last administered on 09:42; Admin Dose 100 MG; Start 12/21/16 at 10:00 Docusate Sodium (Colace Liquid Cup) 100 mg Q12H PRN PO CONSTIPATION Last administered on 12/21/16 12:51; Admin Dose 100 MG; Start 12/21/16 at 10:30 Miscellaneous Information (*Rx Drug Level Order Reminder*) VANCO TROUGH @ 1, 200 ON ... ONCE ONCE XX ; Start 12/23/16 at 12:00; Stop 12/23/16 at 12:01 Assessment/Plan Chief Complaint/Hosp Course IMPRESSION: 1. Acute on chronic hypoxemic respiratory failure. 2. Likely healthcare-associated pneumonia. 3. Chronic respiratory failure with tracheostomy. 4. History of dementia. 5. History of dysphagia. PLAN: 1. Continue cool aerosol. Pulmonary toilet as needed 2. Trach care. 3. Bronchodilators. 4. Antibiotics pending cultures. 5. DVT and GI prophylaxis. consider dc to SNF Problems: ABIOLA SANTANA MD, [facility] Dec 22, 2016 13:01
--- NOTE | 2016-12-22 18:59 | PN ---
DATE: 12/22/2016 SUBJECTIVE: Patient seen, in no acute distress overnight. PHYSICAL EXAMINATION: VITAL SIGNS: Temperature 98, pulse 86, respirations 20, blood pressure 145/78, saturation is 98%. There are no acute events overnight. Temperature 98%, pulse 86, respirations 20, blood pressure 145 /78, saturation 98% on 60% FIO2. GENERAL: The patient is in no acute distress. She has a trach collar. CARDIOVASCULAR: S1 and S2. LUNGS: Decreased bilaterally. ABDOMEN: Soft. She has shingles in the right abdomen. In the right upper extremity, there is some eczema noted. EXTREMITIES: Otherwise, no clubbing, cyanosis, or edema. LABORATORY DATA: White count is 9.5, hemoglobin 11.3, hematocrit 34, platelet count 232, neutrophil s 70%, lymphocytes 11%. Chemistry: Sodium 136, potassium 4.6, chloride 97, bicarbonate 25, BUN is 15, creatinine 0.57, glucose 126. Cultures: Sputum culture shows pseudomonas and gram-negative timoteo s, awaiting sensitivities. Her blood cultures also are positive, gram-positive cocci in clusters 1 of 2 bottles. CURRENT MEDICATIONS: Include: 1. Bactroban to the nares as the patient does have ____ of the nares as well 2. Vancomycin dose per pharmacy. 3. Colace 100 q.12. 4. Cefepime 1 gram q.24 hours. 5. Multivitamin 1 tab daily. 6. MiraLax 17 grams daily. 7. Senna 1 tab daily. 8. Synthroid 75 mcg daily. 9. Protonix 40 mg daily. 10. Sinemet 25/100 t.i.d. 11. Keppra 1000 b.i.d. 12. Kenalog ointment q.p.m. 13. Neurontin 100 t.i.d. 14. Zovirax 800 five times a day. 15. Nizoral shampoo every Friday and Friday. 16. Norvasc 5 mg q.12. 17. Dulcolax p.r.n. 18. Hydralazine p.r.n. 19. Lactulose p.r.n. 20. Artificial Tears as directed. 21. DuoNebs every 4 hours. 22. Zofran p.r.n. 23. Tylenol p.r.n. 24. Morphine. 25. Vancomycin IV dose per pharmacy. ASSESSMENT AND PLAN: This is an 81-year-old female with history of brain injury and hemor rhagic CVA, dysphagia, G-tube feeding, chronic respiratory failure on trach who presented with incre ased secretions and was found to have left-sided was found to have right-sided pneumonia. 1. Respiratory. The patient with positive sputum culture. Followup culture results. Continue cef epime and vancomycin for now and adjust antibiotics as needed. 2. Cardiovascular. Patient is on SCDs for DVT prophylaxis, off blood thinner secondary to previous hemorrhagic CVA. No evidence of fluid overload state. 3. Gastrointestinal. Continue Protonix for gastrointestinal prophylaxis. 4. Shingles. Continue acyclovir and Neurontin. 5. Continue eyelid care. 6. Provide triamcinolone for eczema. 7. Hypothyroidism. Continue Synthroid. TSH is 2.15. 8. Constipation. Stool softeners. 9. Parkinsonism, on Sinemet. 10. Seizure disorder, status post cerebrovascular accident. Continue Keppra. Have been in touch w ith the and I told him about the patient's condition. 11. I appreciate Dr. Medeiros's pulmonary recommendations. Continue aggressive pulmonary care and s uctioning. This patient has secretions. Continue bronchodilators. 12. Continue G-tube feeding. Continue air mattress bed and supportive care. Make sure the patient is comfortable. Dictated By: JONE EPSTEIN/FLOYD Conf#: [id number] DID#: [id number] CC: JONE FERNANDEZ MD;*EndCC*
[2016-12-22] MEDS ORDERED: NA PHOSPHATE/BIPHOS 133 ML ENEMA PR ONE (20:00)
[2016-12-22] MEDS ORDERED: KETOCONAZOLE 2% SHAMPOO 120 ML BTL TOP ONE (20:00)
[2016-12-22] MEDS: MUPIROCIN 2% 22 GM OINT TOP SCH (21:24)
[2016-12-22] MEDS: TRIAMCINOLONE ACET 0.1% 15 GM OINT TOP SCH (21:25)
[2016-12-23] VITALS (12 sets, daily range): BP systolic 104–146; BP diastolic 56–69; PULSE 73–85; RESP 18
[2016-12-23] MEDS: ALBUTEROL/IPRATROPIUM (NEB) 3 ML AMP HHN SCH ×6 (01:58→21:59)
[2016-12-23] MEDS: LEVOTHYROXINE 25 MCG TAB PO SCH (07:29)
[2016-12-23] MEDS: PANTOPRAZOLE (EC) 40 MG TAB PO SCH (07:29)
[2016-12-23 07:43] LABS: BASOPHIL # 0.1 10^3/ul (0.0-0.1); BASOPHILS % 0.7 % (0.0-2.0); EOSINOPHILS # 1.2 10^3/ul (0.0-0.5); EOSINOPHILS % 12.5 % (0.0-7.0); HEMATOCRIT 34.1 % (37.0-47.0); HEMOGLOBIN 10.7 g/dl (12.0-16.0); LYMPHOCYTES # 1.2 10^3/ul (0.8-2.9); LYMPHOCYTES % 12.7 % (15.0-51.0); MEAN CORPUSCULAR HEMOGLOBIN 29.3 pg (29.0-33.0); MEAN CORPUSCULAR HGB CONC 31.4 g/dl (32.0-37.0); MEAN CORPUSCULAR VOLUME 93.4 fl (82.0-101.0); MEAN PLATELET VOLUME 10.9 fl (7.4-10.4); MONOCYTE # 0.8 10^3/ul (0.3-0.9); MONOCYTES % 8.7 % (0.0-11.0); NEUTROPHILS % 65.1 % (39.0-77.0); PLATELET COUNT 231 10^3/UL (140-415); RED BLOOD COUNT 3.65 10^6/ul (4.20-5.40); RED CELL DISTRIBUTION WIDTH 14.5 % (11.5-14.5); WHITE BLOOD COUNT 9.2 10^3/ul (4.8-10.8)
--- NOTE | 2016-12-23 08:18 | RADRPT ---
PROCEDURE: XR Chest. CLINICAL INDICATION: Shortness of breath. TECHNIQUE: Single frontal view. COMPARISON: 12/20/2016. FINDINGS: The tracheostomy tube and dual lead left-sided permanent pacemaker remain in satisfactory position. There is mild left basilar atelectasis, worse than seen previously. Bilateral interstitial pulmonary disease is unchanged. The heart size is normal. There is calcification in the aorta consistent with atherosclerosis. There is no pleural effusion. There is no pneumothorax. IMPRESSION: 1. Worse appearance of the left lung base. 2. No other change from the 12/20/2016 chest radiograph. RPTAT: QQ .Shawn Ho MD, MD Date Time Electronically viewed and signed by .Shawn Ho MD, MD on 12/23/2016 08:18 .R/
[2016-12-23 08:23] LABS: CALCIUM 9.1 mg/dl (8.4-10.2); CREATININE 0.57 mg/dl (0.44-1.00); POTASSIUM 4.5 mmol/L (3.5-5.1)
[2016-12-23] MEDS: DOCUSATE SODIUM 10 MG/ML (10ML CUP) PO SCH ×2 (09:49→21:07)
[2016-12-23] MEDS: LEVETIRACETAM (100 MG/ML) 5ML CUP PEG SCH ×2 (09:49→21:07)
[2016-12-23] MEDS: GABAPENTIN 100 MG CAP GTB SCH ×3 (09:49→21:06)
[2016-12-23] MEDS: CARBIDOPA/LEVODOPA (25/100) TAB PEG SCH ×3 (09:49→21:06)
[2016-12-23] MEDS: MULTIVITAMINS THERAPEUTIC TAB PO SCH (09:49)
[2016-12-23] MEDS: SENNA TAB PO SCH (09:49)
[2016-12-23] MEDS: POLYETHYLENE GLYCOL 17 GM PACKET PO SCH (09:50)
[2016-12-23] MEDS: MUPIROCIN 2% 22 GM OINT TOP SCH ×2 (09:50→21:06)
[2016-12-23] MEDS: AMLODIPINE 5 MG TAB PEG SCH ×2 (09:50→21:07)
[2016-12-23] MEDS: CEFEPIME 1GM/50 ML (PMX) 50 ML IVPB SCH (09:50)
[2016-12-23] MEDS: ACYCLOVIR 800 MG TAB PO SCH ×5 (09:51→21:06)
[2016-12-23] MEDS: PIPER-TAZO 3.375 GM IV (PMX) 50 ML IVPB SCH ×3 (10:35→23:23)
[2016-12-23] MEDS: VANCOMYCIN 1.25 GM in SOD CHLORIDE 0.9% 250 ML IVPB SCH (13:00)
--- NOTE | 2016-12-23 15:09 | CONS ---
Date/Time of Note Date/Time of Note DATE: 12/23/16 TIME: 15:09 Consult Date/Type/Reason Admit Date/Time Dec 20, 2016 at 10:49 Type of Consultation: Pulmonary Subjective Patient comfortable. Objective Vital Signs Date Time Temp Pulse Resp B/P Pulse Ox O2 Delivery O2 Flow Rate FiO2 12/23/16 12:52 94 10.0 60 12/23/16 12:50 80 20 Aerosol T Tube 12/23/16 12:05 98.6 104/58 Intake and Output 12/22/16 12/22/16 12/23/16 14:59 22:59 06:59 Intake Total 1020 ml 950 ml Output Total 1200 ml 1000 ml Balance -180 ml -50 ml Exam Exam PHYSICAL EXAMINATION: GENERAL: Elderly-appearing lady, appears comfortable at rest, no acute distress. VITAL SIGNS: As above. NECK: Trach site clean and intact. CARDIAC: S1, S2, no added sounds or murmurs. CHEST: Diminished air entry bilaterally. ABDOMEN: Soft, nontender. No guarding or rebound. EXTREMITIES: No cyanosis, clubbing, edema. NEUROLOGIC: Generalized weakness. Results/Medications Result Diagram: 12/23/1672112/23/1622 Results 24 hrs Laboratory Tests Test 12/23/16 07:22 12/23/16 12:09 White Blood Count 9.2 Red Blood Count 3.65 L Hemoglobin 10.7 L Hematocrit 34.1 L Mean Corpuscular Volume 93.4 Mean Corpuscular Hemoglobin 29.3 Mean Corpuscular Hemoglobin Concent 31.4 L Red Cell Distribution Width 14.5 Platelet Count 231 Mean Platelet Volume 10.9 H Neutrophils % 65.1 Lymphocytes % 12.7 L Monocytes % 8.7 Eosinophils % 12.5 H Basophils % 0.7 Nucleated Red Blood Cells % 0.0 Neutrophils # 6.0 Lymphocytes # 1.2 Monocytes # 0.8 Eosinophils # 1.2 H Basophils # 0.1 Nucleated Red Blood Cells # 0.0 Sodium Level 137 Potassium Level 4.5 Chloride Level 98 Carbon Dioxide Level 35 H Anion Gap 9 Blood Urea Nitrogen 14 Creatinine 0.57 Glucose Level 123 Calcium Level 9.1 Phosphorus Level 4.0 Magnesium Level 2.0 Vancomycin Level Trough 11.8 Medications Current Medications Ondansetron HCl (Zofran Inj) 4 mg Q6H PRN IV NAUSEA AND/OR VOMITING; Start 11/26 at 11:00 Acetaminophen (Tylenol Tab) 650 mg Q6H PRN PO PAIN LEVEL 1-3 OR FEVER; Start 12/20/16 at 11:00 Morphine Sulfate (morphine) 2 mg Q4H PRN IV PAIN LEVEL 7-10; Start 12/20/16 at 11:00 Pantoprazole (Protonix Tab) 40 mg DAILY@06 PO Last administered on 12/23/16 07:29; Admin Dose 40 MG; Start 12/21/16 at 06:00 Amlodipine Besylate (Norvasc) 5 mg Q12 PEG Last administered on 12/23/16 09: 50; Admin Dose 5 MG; Start 12/20/16 at 13:30 Bisacodyl (Dulcolax Supp) 10 mg Q24H PRN [place] CONSTIPATION; Start 12/20/16 at 13 :30 Carbidopa/Levodopa (Sinemet (25/ 100)) 1 tab TID PEG Last administered on 12/23 14:10; Admin Dose 1 TAB; Start 12/20/16 at 21:00 Hydralazine HCl (Apresoline) 10 mg Q8H PRN GTB SBP > 160; Start 12/20/16 at 13 :30 Ketoconazole (Nizoral Shampoo) 1 applic WeFr@09 TOP Last administered on 15:11; Admin Dose 1 APPLIC; Start 12/20/16 at 14:30 Lactulose (Enulose) 20 gm DAILY PRN PO CONSTIPATION; Start 12/20/16 at 13:30 Levetiracetam (Keppra Liquid) 1,000 mg BID PEG Last administered on 12/23/16 09:49; Admin Dose 1,000 MG; Start 12/20/16 at 21:00 Multivitamins Therapeutic (Theragran) 1 tab DAILY PO Last administered on 12/23 09:49; Admin Dose 1 TAB; Start 12/21/16 at 09:00 Polyethylene Glycol (Miralax) 17 gm DAILY PO Last administered on 12/23/16 09 :50; Admin Dose 17 GM; Start 12/21/16 at 09:00 Eye Lubricant (Artificial Tears Oph) 1 drop Q2HWA PRN BOTH EYES DRY EYES; Start 12/20/16 at 13:30 Senna (Senokot) 1 tab DAILY PO Last administered on 12/23/16 09:49; Admin Dose 1 TAB; Start 12/21/16 at 09:00 Triamcinolone Acetonide (Kenalog 0.1% Oint) 1 applic QPM TOP Last administered on 12/22/16 21:25; Admin Dose 1 APPLIC; Start 12/20/16 at 21:00 Gabapentin 100 mg 100 mg TID GTB Last administered on 12/23/16 14:10; Admin Dose 100 MG; Start 12/20/16 at 21:00 Vancomycin HCl/ Sodium Chloride (Vancocin/NS) 250 ml @ 83.333 mls/ hr Q24H IVPB Last administered on 12/23/16 13:00; Admin Dose 83.333 MLS/HR; Start at 13:00 Docusate Sodium (Colace Liquid Cup) 100 mg Q12 PO Last administered on 09:49; Admin Dose 100 MG; Start 12/21/16 at 10:00 Docusate Sodium (Colace Liquid Cup) 100 mg Q12H PRN PO CONSTIPATION Last administered on 12/21/16 12:51; Admin Dose 100 MG; Start 12/21/16 at 10:30 Mupirocin 1 applic 1 applic BID TOP Last administered on 12/23/16 09:50; Admin Dose 1 APPLIC; Start 12/22/16 at 21:00 Piperacillin Sod/ Tazobactam Sod (Zosyn 3.375gm/ 50 ml (Pmx)) 50 ml @ 100 mls/ hr Q8 IVPB Last administered on 12/23/16 14:10; Admin Dose 100 MLS/HR; Start 12/23/16 at 10:00 Assessment/Plan Chief Complaint/Hosp Course IMPRESSION: 1. Acute on chronic hypoxemic respiratory failure. 2. Likely healthcare-associated pneumonia. 3. Chronic respiratory failure with tracheostomy. 4. History of dementia. 5. History of dysphagia. PLAN: 1. Continue cool aerosol. Pulmonary toilet as needed 2. Trach care. 3. Bronchodilators. 4. Antibiotics pending cultures. 5. DVT and GI prophylaxis. consider dc to SNF Problems: ABIOLA SANTANA MD, [facility] Dec 23, 2016 15:09
--- NOTE | 2016-12-23 19:10 | PDOCDIS ---
Discharge Instructions CONDITION Patient Condition: Stable HOME CARE INSTRUCTIONS: Diet Instructions: Special Diet: G-tube feedings FOLLOW UP/APPOINTMENTS Follow-up Plan [facility] subacute, see attached reconciliation JONE FERNANDEZ MD Dec 23, 2016 19:10
[2016-12-23] MEDS: TRIAMCINOLONE ACET 0.1% 15 GM OINT TOP SCH (21:11)
[2016-12-24] VITALS (11 sets, daily range): BP systolic 121–140; BP diastolic 59–69; PULSE 72–80; RESP 16–18
[2016-12-24] MEDS: ALBUTEROL/IPRATROPIUM (NEB) 3 ML AMP HHN SCH ×6 (02:39→20:02)
--- NOTE | 2016-12-24 03:12 | DS ---
DATE OF ADMISSION: 12/20/2016 DATE OF DISCHARGE: 12/23/2016 REASON FOR ADMISSION: Acute respiratory failure, pneumonia. HOSPITAL COURSE: The patient is an 81-year-old unfortunate female with a history of coron blaze artery disease, status post PCI, pacemaker, COPD, trach and PEG, off the ventilator, history of CVA with intracranial hemorrhage status post shunt placement, also had a basilic vein thrombosis. [facility], she has chronic encephalopathy, likely from the stroke. She resides at the [facility]. Prior to admission, she was noted to be congested and hypoxic. She was placed on high oxygen and was brought into [facility]. Chest x-ray revealed left lower lo be pneumonia. The cultures were obtained. Sputum culture revealed Pseudomonas aeruginosa and Klebs iella pneumoniae ESBL, both sensitive to Zosyn and cefepime, which initially she was on . Ches t x-ray unfortunately revealed still a left lung infiltrate, but clinically she is doing well. The patient is afebrile. Saturation is adequate and a white count is now normal. She also was noted to have right abdominal rash consistent with shingles. I started her on acyclovir and Neurontin, and she has right upper extremity eczema and I started her on triamcinolone. The patient's case discuss ed on a routine basis with the , his name is Jai, phone number [phone]. [address] Medeiros, the adjuster [employer], who stated today consider discharge to SNF. The patient MRSA of the nares was positive and she was started on Bactroban ointment b.i.d. to the nares to be given for 14 days. Blood cultures remained negative. DISCHARGE MEDICATIONS: The patient will be discharged with the following medications: 1. Acyclovir 800 t.i.d. for 2 more days. 2. Albuterol with DuoNeb every 4 hours plus q.2 p.r.n. 3. Norvasc 5 mg q.12. 4. Artificial tears to both eyes as directed. 5. Dulcolax p.r.n. 6. Colace 100 q.12. 7. Neurontin 100 t.i.d. 8. Hydralazine 10 mg q.8 hours as needed. 9. Nizoral shampoo every Friday and Friday. 10. Lactulose daily. 11. Keppra, we will reduce the dose of 750 b.i.d., as patient has no seizures and she had a stroke more than 6 months ago. 12. Sinemet 25/100 t.i.d. 13. Synthroid 25 mcg daily. 14. Multivitamin 1 tablet daily. 15. Bactroban ointment to the nares b.i.d. 16. Zofran 4 mg q.4 via G-tube p.r.n. 17. Protonix 40 mg daily. 18. Zosyn 3.375 IV q.8 for 7 days. 19. MiraLax 17 grams daily. 20. Senna 1 tab daily. 21. Kenalog applied as directed. 22. Discontinue vancomycin as sputum culture was negative for that. 23. as directed. Chest x-ray to be done on 12/26/2016. CBC, CMP on 12/26/2016. FINAL DIAGNOSES: 1. Acute respiratory failure. 2. Left-sided pneumonia. 3. Chronic respiratory failure. 4. Encephalopathy, vascular type, secondary to hemorrhagic cerebrovascular accident. 5. Coronary artery disease. 6. Anemia. 7. Dysphagia. 8. G-tube feeding. 9. Shingles. 10. Right upper extremity rash, possible eczema. 11. Hypothyroidism. 12. Hypertension, controlled. VITAL SIGNS: Vitals are stable, temperature 98.6, pulse 80, respirations 18, blood pressure 117/56, saturation 97%. DISPOSITION: Patient will be discharged to the subacute at [facility]. is aware of pl an of care. The patient is to be discharged today in fair condition. LONG-TERM PROGNOSIS: Guarded. The patient overall with poor quality of life. The patient is full code. The patient will be discharged. Dictated By: JONE EPSTEIN/FLOYD Conf#: [id number] DID#: [id number]
[2016-12-24] MEDS: PIPER-TAZO 3.375 GM IV (PMX) 50 ML IVPB SCH ×2 (06:25→13:30)
[2016-12-24] MEDS: LEVOTHYROXINE 25 MCG TAB PO SCH (06:26)
[2016-12-24] MEDS: PANTOPRAZOLE (EC) 40 MG TAB PO SCH (06:26)
[2016-12-24] MEDS: CARBIDOPA/LEVODOPA (25/100) TAB PEG SCH ×2 (08:50→13:30)
[2016-12-24] MEDS: GABAPENTIN 100 MG CAP GTB SCH ×2 (08:50→13:30)
[2016-12-24] MEDS: MULTIVITAMINS THERAPEUTIC TAB PO SCH (08:50)
[2016-12-24] MEDS: LEVETIRACETAM (100 MG/ML) 5ML CUP PEG SCH (08:50)
[2016-12-24] MEDS: POLYETHYLENE GLYCOL 17 GM PACKET PO SCH (08:51)
[2016-12-24] MEDS: AMLODIPINE 5 MG TAB PEG SCH (08:51)
[2016-12-24] MEDS: MUPIROCIN 2% 22 GM OINT TOP SCH (08:51)
[2016-12-24] MEDS: SENNA TAB PO SCH (09:30)
[2016-12-24] MEDS: ACYCLOVIR 800 MG TAB PO SCH ×3 (09:30→17:39)
[2016-12-24] MEDS: DOCUSATE SODIUM 10 MG/ML (10ML CUP) PO SCH (09:30)
--- NOTE | 2016-12-24 09:36 | PN ---
DATE: 12/24/2016 The patient was not discharged yesterday as she is planned probably to be discharged today as an ord er was written. The patient overall appears to be comfortable, no acute distress. PHYSICAL EXAMINATION: VITAL SIGNS: Afebrile, temperature 98.7, pulse is 84, respiration 18 to 22, blood pressure 122/59, saturation 98% on 10 liter via trach aerosol. GENERAL: The patient is in no acute distress. The patient is pale. HEENT: Temporal wasting. CARDIOVASCULAR: S1 and S2, regular rate. LUNGS: Clear. ABDOMEN: Soft. She has a rash in the right abdomen. Continue with shingles. EXTREMITIES: There is no clubbing, cyanosis, or edema. GENITOURINARY: Cheney to gravity. Order to discontinue Cheney was written as well. LABORATORY DATA: No new labs today. MEDICATIONS: The patient's medications were all reviewed. 1. Zosyn 3.375 IV q.8h. 2. Bactroban b.i.d. 3. Vancomycin dose per pharmacy. 4. Colace 100 p.r.n. q. 12 routine. 5. Multivitamin 1 tablet daily. 6. MiraLax 17 grams daily. 7. Senna 1 tab daily. 8. Synthroid 25 mcg daily. 9. Protonix 40 mg daily. 10. Sinemet 25/100 t.i.d. 11. Keppra 1000 b.i.d. 12. Kenalog b.i.d. q.8h q.p.m. 13. Neurontin 100 t.i.d. 14. Zovirax 800 five times a day. 15. Nizoral shampoo twice a week. 16. Hydralazine p.r.n. 17. Lactulose p.r.n. 18. Artificial tears as directed. 19. DuoNeb every 4 hours and p.r.n. 20. Zofran p.r.n. 21. Tylenol p.r.n. 22. Morphine p.r.n. ASSESSMENT AND PLAN: This is an 81-year-old female with history of brain injury, hemorrha gic cerebrovascular accident, dysphagia, G-tube feeding, chronic respiratory failure on a trach, off the vent, who presents with increased secretions and was found to have left-sided pneumonia. 1. Respiratory: Positive sputum culture. Continue Zosyn for a period of 7 more days to be continu ed at the half-way facility. 2. Cardiovascular, stable. Off blood thinners secondary to history of hemorrhagic cerebrovascular accident. 3. Gastrointestinal. Continue Protonix for gastrointestinal prophylaxis. 4. Shingles on acyclovir and Neurontin. 5. Continue care. 6. Examination of the right upper extremity. Continue triamcinolone. 7. Hypothyroidism, on Synthroid. 8. Constipation. Continue stool softener. 9. Parkinsonism, on Sinemet. 10. Seizure disorder. Continue Keppra. Would reduce the dose to 750. 11. Discontinue Cheney and discharge to half-way facility. Case discussed with the , Jai. He is aware of plan of care. 12. Continue G-tube feeding. Patient tolerating it well. Continue close care at subacute at [facility]. I appreciate Dr. Medeiros's pulmonary input. Plan to discharge today. Reconciliation medications fi lled. Diagnosis for discharge is the same as yesterday's discharge summary. Again, the patient will be di scharged in fair condition. Dictated By: JONE EPSTEIN/NTS Conf#: [id number] DID#: [id number]
[2016-12-24] MEDS: VANCOMYCIN 1.25 GM in SOD CHLORIDE 0.9% 250 ML IVPB SCH (13:33)
--- NOTE | 2016-12-24 15:40 | CONS ---
Date/Time of Note Date/Time of Note DATE: 12/24/16 TIME: 15:39 Consult Date/Type/Reason Admit Date/Time Dec 20, 2016 at 10:49 Type of Consultation: Pulmonary Subjective Comfortable, no events. Objective Vital Signs Date Time Temp Pulse Resp B/P Pulse Ox O2 Delivery O2 Flow Rate FiO2 12/24/16 12:57 95 10.0 60 12/24/16 12:56 73 20 Aerosol T Tube 12/24/16 11:53 99.6 131/61 Intake and Output 12/23/16 12/23/16 12/24/16 14:59 22:59 06:59 Intake Total 665 ml 705 ml Output Total 900 ml 1100 ml Balance -235 ml -395 ml Exam PHYSICAL EXAMINATION: GENERAL: Elderly-appearing lady, appears comfortable at rest, no acute distress. VITAL SIGNS: As above. NECK: Trach site clean and intact. CARDIAC: S1, S2, no added sounds or murmurs. CHEST: Diminished air entry bilaterally. ABDOMEN: Soft, nontender. No guarding or rebound. EXTREMITIES: No cyanosis, clubbing, edema. NEUROLOGIC: Generalized weakness. Results/Medications Result Diagram: 12/23/1672112/23/16721 Medications Current Medications Ondansetron HCl (Zofran Inj) 4 mg Q6H PRN IV NAUSEA AND/OR VOMITING; Start 11/26 at 11:00 Acetaminophen (Tylenol Tab) 650 mg Q6H PRN PO PAIN LEVEL 1-3 OR FEVER; Start 12/20/16 at 11:00 Morphine Sulfate (morphine) 2 mg Q4H PRN IV PAIN LEVEL 7-10; Start 12/20/16 at 11:00 Pantoprazole (Protonix Tab) 40 mg DAILY@06 PO Last administered on 12/24/16 06:26; Admin Dose 40 MG; Start 12/21/16 at 06:00 Amlodipine Besylate (Norvasc) 5 mg Q12 PEG Last administered on 12/24/16 08: 51; Admin Dose 5 MG; Start 12/20/16 at 13:30 Bisacodyl (Dulcolax Supp) 10 mg Q24H PRN SC CONSTIPATION; Start 12/20/16 at 13 :30 Carbidopa/Levodopa (Sinemet (25/ 100)) 1 tab TID PEG Last administered on 12/24 13:30; Admin Dose 1 TAB; Start 12/20/16 at 21:00 Hydralazine HCl (Apresoline) 10 mg Q8H PRN GTB SBP > 160; Start 12/20/16 at 13 :30 Ketoconazole (Nizoral Shampoo) 1 applic WeFr@09 TOP Last administered on 15:11; Admin Dose 1 APPLIC; Start 12/20/16 at 14:30 Lactulose (Enulose) 20 gm DAILY PRN PO CONSTIPATION; Start 12/20/16 at 13:30 Levetiracetam (Keppra Liquid) 1,000 mg BID PEG Last administered on 12/24/16 08:50; Admin Dose 1,000 MG; Start 12/20/16 at 21:00 Multivitamins Therapeutic (Theragran) 1 tab DAILY PO Last administered on 12/24 08:50; Admin Dose 1 TAB; Start 12/21/16 at 09:00 Polyethylene Glycol (Miralax) 17 gm DAILY PO Last administered on 12/24/16 08 :51; Admin Dose 17 GM; Start 12/21/16 at 09:00 Eye Lubricant (Artificial Tears Oph) 1 drop Q2HWA PRN BOTH EYES DRY EYES; Start 12/20/16 at 13:30 Senna (Senokot) 1 tab DAILY PO Last administered on 12/24/16 09:30; Admin Dose 1 TAB; Start 12/21/16 at 09:00 Triamcinolone Acetonide (Kenalog 0.1% Oint) 1 applic QPM TOP Last administered on 12/23/16 21:11; Admin Dose 1 APPLIC; Start 12/20/16 at 21:00 Gabapentin 100 mg 100 mg TID GTB Last administered on 12/24/16 13:30; Admin Dose 100 MG; Start 12/20/16 at 21:00 Vancomycin HCl/ Sodium Chloride (Vancocin/NS) 250 ml @ 83.333 mls/ hr Q24H IVPB Last administered on 12/24/16 13:33; Admin Dose 83.333 MLS/HR; Start at 13:00 Docusate Sodium (Colace Liquid Cup) 100 mg Q12 PO Last administered on 09:30; Admin Dose 100 MG; Start 12/21/16 at 10:00 Docusate Sodium (Colace Liquid Cup) 100 mg Q12H PRN PO CONSTIPATION Last administered on 12/21/16 12:51; Admin Dose 100 MG; Start 12/21/16 at 10:30 Mupirocin 1 applic 1 applic BID TOP Last administered on 12/24/16 08:51; Admin Dose 1 APPLIC; Start 12/22/16 at 21:00 Piperacillin Sod/ Tazobactam Sod (Zosyn 3.375gm/ 50 ml (Pmx)) 50 ml @ 100 mls/ hr Q8 IVPB Last administered on 12/24/16 13:30; Admin Dose 100 MLS/HR; Start 12/23/16 at 10:00 Assessment/Plan Chief Complaint/Hosp Course IMPRESSION: 1. Acute on chronic hypoxemic respiratory failure. 2. Likely healthcare-associated pneumonia. 3. Chronic respiratory failure with tracheostomy. 4. History of dementia. 5. History of dysphagia. PLAN: 1. Continue cool aerosol. Pulmonary toilet as needed 2. Trach care. 3. Bronchodilators. 4. Antibiotics pending cultures. 5. DVT and GI prophylaxis. agree with dc planning. Problems: ABIOLA SANTANA MD, [facility] Dec 24, 2016 15:40
== END 2016-12-24 20:03 | DRG 193 ==
LOC: E/R 09:19 → TEL 10:49
PROVIDERS: ADMIT Internal Medicine; ATTEND Internal Medicine
DX: J18.9 Pneumonia, unspecified organism (principal); G93.49 Other encephalopathy; J96.21 Acute and chronic respiratory failure with hypoxia; Z93.0 Tracheostomy status; R13.10 Dysphagia, unspecified; Z22.322 Carrier or suspected carrier of Methicillin resistant Staphylococcus aureus; I69.298 Other sequelae of other nontraumatic intracranial hemorrhage; D64.9 Anemia, unspecified; Z93.1 Gastrostomy status; B02.9 Zoster without complications; E03.9 Hypothyroidism, unspecified; I10 Essential (primary) hypertension; Z45.018 Encounter for adjustment and management of other part of cardiac pacemaker; B96.5 Pseudomonas (aeruginosa) (mallei) (pseudomallei) as the cause of diseases classified elsewhere; B96.1 Klebsiella pneumoniae [K. pneumoniae] as the cause of diseases classified elsewhere; Z16.12 Extended spectrum beta lactamase (ESBL) resistance; G40.909 Epilepsy, unspecified, not intractable, without status epilepticus; G20 Parkinson's disease
CPT/HCPCS: 36415; 36600; 71010; 80048; 80053; 80202; 82803; 82962; 83605; 83735; 84100; 84443; 84484; 85025; 85610; 85730; 87040; 87070; 87081; 89220; 93005; 94640; 94664; 96374; J0692; J2543; J3370; J7050

== ENCOUNTER 2017-04-23 13:36 | Inpatient (IN) | END 2017-05-03 15:55 | DRG 393 ==

== ENCOUNTER 2017-07-27 09:03 | Emergency (ER) | END 2017-07-27 11:29 | disposition home or self-care (01) ==